=== PATIENT | male | born 1995 | race Two or more races ===

== ENCOUNTER 2018-05-25 05:27 | Day surgery (SDC) | payer OTHER ==
[~2018-05-25 05:27] MED LIST: CEFAZOLIN 2 GM/D5W RTU 2 GM/50 ML RTUPB IV PRN
[2018-05-25] MEDS ORDERED: CEFAZOLIN 2 GM/D5W RTU 2 GM/50 ML RTUPB IV ONE (05:40)
[2018-05-25] MEDS ORDERED: ACETAMINOPHEN 1,000 MG/100 ML RTUPB IV ONE (07:00)
[2018-05-25] MEDS ORDERED: FENTANYL CITRATE INJ/PF 100 MCG/2 ML AMPUL ONE (07:00)
[2018-05-25] MEDS ORDERED: PROPOFOL INJ 200 MG/20 ML VIAL IV ONE (07:00)
[2018-05-25] MEDS ORDERED: ONDANSETRON HCL INJ/PF 4 MG/2 ML SDV ONE (07:00)
[2018-05-25] MEDS ORDERED: MIDAZOLAM 2 MG/2 ML INJ ONE (07:00)
[2018-05-25] MEDS ORDERED: BUPIVACAINE HCL 0.5 % INJ/PF 30 ML SDV ONE (07:50)
[2018-05-25] MEDS ORDERED: MORPHINE SULFATE 10 MG/ML INJ IV PRN (07:56)
[2018-05-25] MEDS ORDERED: PROMETHAZINE HCL INJ 25 MG/1 ML VIAL IV PRN (07:56)
[2018-05-25] MEDS ORDERED: MEPERIDINE HCL/PF INJ 25 MG/1 ML DISP.SYRIN IV PRN (07:56)
[2018-05-25] MEDS ORDERED: FENTANYL CITRATE INJ/PF 100 MCG/2 ML AMPUL IV PRN ×3 (07:56)
[2018-05-25] MEDS ORDERED: DIPHENHYDRAMINE HCL 50 MG/ML VIAL IV PRN (07:56)
--- NOTE | 2018-05-25 08:58 | OPERATIVE REPORT E ---
Operative Report NAME: KEELY BAUGH : 1995 AGE: 23Y DATE OF SURGERY: 05/25/2018 ROOM: PREOPERATIVE DIAGNOSIS: Left wrist volar ganglion cyst. POSTOPERATIVE DIAGNOSES: 1. Left wrist volar ganglion cyst. 2. Radial-sided TFCC tear. OPERATION: 1. Left wrist open excision, volar ganglion cyst. 2. Left wrist arthroscopy with debridement, separate incision. SURGEON: AJIT NULL M.D. ANESTHESIA: General. ESTIMATED BLOOD LOSS: Minimal. COMPLICATIONS: None. INDICATIONS FOR PROCEDURE: The patient is a 23-year-old man with persistent wrist pain coinciding in the region of a volar ganglion cyst of the left wrist. He has failed nonoperative treatment. DESCRIPTION OF PROCEDURE: Following the induction of a general anesthetic and administration of antibiotics, the patient was positioned supine on the operating room table. All bony prominences were padded. A tourniquet was placed proximally on the left arm but not inflated. The left upper extremity was sterilely prepped with ChloraPrep and draped in standard fashion. The arm was exsanguinated. The tourniquet was inflated to 100 mmHg above systolic pressure. We first turned our attention to the volar ganglion cyst. A volar incision was made on the radial volar aspect of the wrist. Sharp incision was performed through skin and blunt dissection through subcutaneous tissue. Care was taken to identify the radial artery and protect it. The volar ganglion cyst was found coursing deep in the region of the transverse wrist crease. It was surrounded by multiple small veins from the radial artery. These were coagulated with Bovie electrocautery and tied off with 3-0 Vicryl suture. The volar ganglion cyst was excised as it dove deep into the volar radiocarpal joint and sent to pathology. The wound was left open for later localization. The wrist was then placed in a wrist traction tower and 20 pounds of traction were placed across the radiocarpal joint. A 3/4 arthroscopic portal was made and the localization was performed followed by sharp incision through skin only and blunt trocar entry into the joint. Diagnostic arthroscopy was performed. Diagnostic arthroscopy demonstrated a tear between the long and short radiolunate ligaments consistent with the area localized from the volar ganglion cyst. In addition, there was a radial-sided TFCC tear. A 6R portal was then made. Needle was used for localization. Sharp incision was performed through skin only. Blunt trocar was used for entry. A shaver was brought in. The radial-sided TFCC tear was debrided back to a stable base. The arthroscope was then placed in the 6R portal, a shaver was placed in the 3/4 portal, and debridement between the long and short radiolunate ligaments was performed to open up the area where the volar ganglion cyst was emanating from. The scope was removed. The hand was taken out of the traction. The volar incision was closed. Deep sutures were placed of 3-0 Vicryl suture. The skin was closed with a running subcuticular 3-0 Monocryl suture, 0.25% Marcaine was injected into all wounds, and a bulky sterile dressing was applied. The patient tolerated the procedure well without complications and was brought to the recovery room in stable condition. DICTATING PHYSICIAN: AJIT NULL M.D. [id number] PHY#: [id number] ID: [id number] JOB#: [id number] ACCT: [id number] cc:AJIT NULL M.D. >
[2018-05-25] MEDS: FENTANYL CITRATE INJ/PF 100 MCG/2 ML AMPUL ONE ×2 (09:06→09:11)
[2018-05-25] MEDS ORDERED: OXYCODONE-ACETAMINOPHEN 5-325 MG TABLET PO PRN (09:55)
[2018-05-25] MEDS ORDERED: ONDANSETRON HCL INJ/PF 4 MG/2 ML SDV IV PRN (09:56)
[2018-05-25 12:58] VITALS: BP 112/63
== END 2018-05-25 10:20 | disposition home or self-care (01) ==
LOC: OROUT 05:27
PROVIDERS: ATTEND Orthopaedic Surgery
DX: M67.432 Ganglion, left wrist (principal); S63.592A Other specified sprain of left wrist, initial encounter; X58.XXXA Exposure to other specified factors, initial encounter; F32.9 Major depressive disorder, single episode, unspecified; Z79.899 Other long term (current) drug therapy
CPT/HCPCS: 88305 ×2; 25111; 29846; J2250; J3490; J3010; J2405; J2704; J0690; J0131; 1830